=== PATIENT | female | born 1990 | race American Indian/Alaskan Native ===

== ENCOUNTER 2017-06-17 13:19 | Emergency (ER) | payer OTHER ==
--- NOTE | 2017-06-17 15:23 | Emergency Department Report ---
Blank Doc - Documentation Documentation: Patient is a 26-year-old Shaye female who is presenting with cough cold congestion body aches fever wheezing nausea vomiting and sore throat for the past 2 days. Patient denies any diarrhea or headache at this time. On brief physical exam patient is wheezing and has uncontrollable cough that sounds painful. Patient will be moved to a treatment room to get IV fluids and nausea medicine and a breathing treatment and Solu-Medrol chest x-ray be reassessed.
[2017-06-17] MEDS ORDERED: NORCO 7.5/325 PO ONE (15:24)
[2017-06-17] MEDS ORDERED: NACL 0.9% 1000 ML 1,000 ML IV ONE (15:24)
[2017-06-17] MEDS ORDERED: PROVENTIL IH ONE (15:24)
[2017-06-17] MEDS ORDERED: TORADOL IV ONE (15:24)
[2017-06-17] MEDS ORDERED: ATROVENT IH ONE (15:24)
[2017-06-17] MEDS ORDERED: ZOFRAN IV ONE (15:24)
--- NOTE | 2017-06-17 15:32 | Emergency Department Report ---
HPI - General Chief Complaint: Upper Respiratory Infection Time Seen by Provider: 06/17/17 15:07 - HPI HPI: Patient airport cough, body ache, chills. Says she's been ill since yesterday. Denies other medical problems. Denies taking any medication. Positive sore throat, nausea vomiting and productive cough. Denies any headache or diarrhea. Denies any abdominal pain. Denies any dizziness. Denies any drooling. Patient said she also had nasal congestion and drainage which started about a week and since yesterday she started coughing and body ache and chills. She says she took [id number] Tylenol Cold without any relief. Last menstrual period was 06/17/2017. Denies any chest pain or shortness of breath. Body aches and sore throat was 5 out of 10. Vomited times one today. ED Past Medical Hx - Past Medical History Previous Medical History?: Yes Hx Hypertension: No Hx Congestive Heart Failure: No Hx Diabetes: No Hx Deep Vein Thrombosis: No Hx Renal Disease: No Hx Sickle Cell Disease: No Hx Headaches / Migraines: Yes Hx Seizures: No Hx Asthma: No Hx COPD: No Hx HIV: No Additional medical history: denies - Surgical History Past Surgical History?: No Additional Surgical History: denies - Family History Family history: hypertension - Social History Smoking Status: Current Every Day Smoker Substance Use Type: None - Medications Home Medications: Home Medications Medication Instructions Recorded Confirmed Last Taken Type Butalb/Acetaminophen/Caffeine 1 cap PO Q6HR PRN #20 cap 11/08/15 Unknown Rx [Fioricet 50-300-40 mg CAP] ALBUTEROL Inhaler [ProAir HFA 2 puff IH QID PRN #1 inhalation 06/17/17 Unknown Rx Inhaler] Amoxicillin/K Clav Tab [Augmentin 1 tab PO Q12HR 10 Days #20 tab 06/17/17 Unknown Rx 875 mg] Cetirizine HCl [ZyrTEC] 10 mg PO QDAY 14 Days #14 capsule 06/17/17 Unknown Rx Fluticasone [Flonase] 1 spray NS QDAY 14 Days #1 bottle 06/17/17 Unknown Rx Ibuprofen [Motrin 600 MG tab] 600 mg PO Q8H PRN #15 tablet 06/17/17 Unknown Rx Prednisone [predniSONE 5 mg (6-Day 5 mg PO .TAPER #1 tab.ds.pk 06/17/17 Unknown Rx Pack, 21 Tabs)] Promethazine HCl/Codeine 5 ml PO Q6H PRN #118 syrup 06/17/17 Unknown Rx [Promethazine-Codeine Syrup] ED Review of Systems ROS: Stated complaint: CP/COLD/COUGHING Other details as noted in HPI Comment: All other systems reviewed and negative Constitutional: chills, malaise Eyes: denies: eye pain, eye discharge ENT: throat pain, congestion. denies: ear pain, dental pain Respiratory: cough. denies: orthopnea, shortness of breath, SOB with exertion, SOB at rest, stridor, wheezing Cardiovascular: denies: chest pain, palpitations, dyspnea on exertion, orthopnea , edema, syncope, paroxysmal nocturnal dyspnea Gastrointestinal: nausea, vomiting. denies: abdominal pain, diarrhea, constipation, hematemesis, melena, hematochezia Genitourinary: denies: urgency, dysuria, frequency, hematuria, abnormal menses Musculoskeletal: myalgia. denies: back pain, joint swelling, arthralgia Skin: denies: rash, pruritus Neurological: denies: headache, weakness, numbness, paresthesias, confusion, abnormal gait, vertigo Physical Exam - Physical Exam Vital Signs: Vital Signs 06/17/17 13:26 Temperature 98.6 F Pulse Rate 104 H Respiratory 20 Rate Blood Pressure 122/69 O2 Sat by Pulse 100 Oximetry General: This is a 26-year-old female well-nourished. Mild anxiety from illness. Nontoxic in appearance. Physical Exam: Head: Normocephalic, atraumatic, no abrasion, no bruising and no contusion. Eyes: Biateral pupils equal and reactive to light, bilateral EOM intact.. Bilateral conjunctival and sclera without injection, normal accommodation. Mouth: Mucosa dry, no pharyngeal exudate or erythema. No peritonsillar abscesses. Uvula is midline and oral airways patent. Ears: Bilateral TMs congested without erythema , Bilateral EAC without any redness swelling or drainage. No mastoid bone tenderness Nose: Bilateral nasal mucosa congested with clear drainage,Maxillary and frontal sinuses non-tender to palpate. Neck: Supple, No Cervical adenopathy, full range of motion and no C-spine tenderness. No swelling or tracheal deviation normal reflexes Cardiovascular: S1, S2. Mild tachycardia at 104 ,Regular rhythm. No murmur. Capillary refill is less then 3 seconds. Lungs: Patient presents alone feel and congested cough. No chest wall tenderness. No chest contusion. No bruising to chest. MSK: Strength 5/5 in all extremities. No joint deformity or crepitus. Normal inspection. Full range of motion to all extremities. No laceration, abrasion or ecchymotic area noted. Abdomen: Non-tender to palpate in all quadrants, no guarding or rebound tenderness, positive bowel sounds in all quadrants. No CVA tenderness. No hernia, bruit or mass. No rigidity or distention. Extremities: No clubbing, cyanosis or edema. +2 pulses. No neurovascular compromise Skin: Clean, dry and intact. No rash or lesions. Neurological: GCS at 15, Pt is alert and oriented 3 speech is clear . Psych: Normal mood and behavior ED Course Vital Signs 06/17/17 13:26 Temperature 98.6 F Pulse Rate 104 H Respiratory 20 Rate Blood Pressure 122/69 O2 Sat by Pulse 100 Oximetry Vital Signs 06/17/17 06/17/17 13:26 18:14 Temperature 98.6 F Pulse Rate 104 H 90 Respiratory 20 18 Rate Blood Pressure 122/69 Blood Pressure 122/70 [Left] O2 Sat by Pulse 100 98 Oximetry - Reevaluation(s) Reevaluation #1: 06/17/17 18:21 Patient received albuterol nebulizer 10 mg , Atrovent 1 mg, Solu-Medrol 125 mg IV. For cough and wheezing. She received Zofran 4 mg IV for nausea and Toradol 30 mg IV for pain. She also received hydrocodone 1 tablet by mouth also for pain. She received 1 L normal saline bolus. Upon her evaluation patient with very minimal wheezing to upper lung bynum, cough has subsided and pain and nausea has resolved. Patient says she is feeling a lot better. Her vital signs are stable and she is afebrile. Strep test is negative. ED Medical Decision Making - Lab Data Lab Results 06/17/17 Range/Units 17:30 Group A Strep Rapid Negative (Negative) Strep culture pending - Radiology Data Radiology results: report reviewed Chest x-ray revealed no acute cardiopulmonary findings - Medical Decision Making ED course: Patient presented to the emergency room complaining of worsening cold symptoms since yesterday. She prior to that she's been having nasal congestion and runny nose. Patient and will wheeze in and continuous cough and mild anxiety. Patient with onset of respiratory Infection cough congestion, nausea and vomiting, musculoskeletal pain, acute bronchitis. Strep test negative and culture pending. Chest x-ray shows no acute cardiopulmonary processes. Patient was given 10 mg albuterol and one Atrovent nebulizer, Solu- Medrol 125 mg IV which relieved her wheezing and upper coughing. She is having musculoskeletal pain and she received hydrocodone 1 tablet and Toradol 30 mg IV which pain has subsided. She received IV fluid 1 L IV bolus, Zofran 4 mg IV for nausea and patient's much better. Her vital signs remained stable throughout ED stay. I discussed strep and x-ray results patient, diagnosis and treatment plan and need to follow-up. She does not have a primary care physician so I'll go ahead and give her information for some outside Medical Center. I discussed with her that she needs to call tomorrow to schedule an appointment for follow-up visit. She voiced understanding and discharged home with prescription for albuterol, Zyrtec, Flonase, promethazine with codeine to help cough and nausea, Augmentin , Motrin and prednisone. Critical care attestation.: If time is entered above; I have spent that time in minutes in the direct care of this critically ill patient, excluding procedure time. ED Disposition Clinical Impression: Upper respiratory infection with cough and congestion, Musculoskeletal pain, Nausea and vomiting in adult Acute bronchitis Qualifiers: Bronchitis organism: unspecified organism Qualified Code(s): J20.9 - Acute bronchitis, unspecified Pharyngitis Qualifiers: Pharyngitis/tonsillitis etiology: unspecified etiology Qualified Code(s): J02.9 - Acute pharyngitis, unspecified Disposition: DC-01 TO HOME OR SELFCARE Is pt being admited?: No Does the pt Need Aspirin: No Condition: Stable Instructions: Acute Bronchitis (ED), Upper Respiratory Infection (ED), Acute Nausea and Vomiting (ED), Acute Cough (ED), Musculoskeletal Pain (ED) Additional Instructions: Please increase her fluid intake to 2-3 L of water a day. Takes Zyrtec and Flonase and this will help to relieve nasal congestion Take Augmentin, albuterol and prednisone for acute bronchitis Take Motrin for pain Take promethazine with codeine for cough and nausea. Please do not drive or operate heavy machinery while taking this medication as it causes drowsiness Follow up with [facility] in 2 days. Prescriptions: ALBUTEROL Inhaler [ProAir HFA Inhaler] 2 puff IH QID PRN #1 inhalation PRN Reason: wheezing and cough Amoxicillin/K Clav Tab [Augmentin 875 mg] 1 tab PO Q12HR 10 Days #20 tab Cetirizine HCl [ZyrTEC] 10 mg PO QDAY 14 Days #14 capsule Fluticasone [Flonase] 1 spray NS QDAY 14 Days #1 bottle Ibuprofen [Motrin 600 MG tab] 600 mg PO Q8H PRN #15 tablet PRN Reason: Pain Prednisone [predniSONE 5 mg (6-Day Pack, 21 Tabs)] 5 mg PO .TAPER #1 tab.ds.pk Promethazine HCl/Codeine [Promethazine-Codeine Syrup] 5 ml PO Q6H PRN #118 syrup PRN Reason: nausea and cough Referrals: [facility] [Outside] - 06/19/17 Forms: Accompanied Note, Work/School Release Form(ED)
--- NOTE | 2017-06-17 17:39 | XRay Report ---
FINAL REPORT EXAM: XR CHEST ROUTINE 2V HISTORY: cough TECHNIQUE: Two view chest PA and lateral PRIORS: None. FINDINGS: Cardiac and mediastinal contours are unremarkable. No focal pulmonary infiltrate is identified. No pleural fluid collection seen. Pulmonary vasculature is unremarkable. IMPRESSION: Negative two-view chest
[2017-06-17 18:15] VITALS: BP 122/70
== END 2017-06-17 18:44 | disposition home or self-care (01) ==
LOC: ED 13:19
DX: J06.9 Acute upper respiratory infection, unspecified (principal); J20.9 Acute bronchitis, unspecified; F17.200 Nicotine dependence, unspecified, uncomplicated
CPT/HCPCS: 71046; 87116; 87430; 94640; 96361; 96374; 96375; 99284; J1885; J2405; J2930; J7030

== ENCOUNTER 2017-09-27 20:00 | Emergency (ER) | payer SELFPAY ==
[2017-09-27] MEDS ORDERED: MOTRIN PO ONE (21:06)
[2017-09-27] MEDS ORDERED: AUGMENTIN 875 MG PO ONE (21:06)
[2017-09-27] MEDS ORDERED: DECADRON IM ONE (21:06)
--- NOTE | 2017-09-27 21:14 | Emergency Department Report ---
<DONAVAN KAPOOR - Last Filed: 09/27/17 21:10> ED ENT HPI - General Chief complaint: Sore Throat Stated complaint: SORE THROAT,BODY ACHE Time Seen by Provider: 09/27/17 21:06 Source: patient Mode of arrival: Ambulatory Limitations: No Limitations - History of Present Illness Initial comments: Patient is a 27-year-old female who presents for recurrent pharyngitis patient states pharyngitis resistive to penicillin usually treated with Augmentin 875 by mouth twice a day for 10 days this flare for the last 3 days patient has not seen in ENT as directed states nocturnal fever Tmax 101.5 F oral patient is currently tolerating by mouth intake is no ear pain shortness of breath no stridor complaint: sore throat, difficulty swallowing Onset/Timin -: days(s) Severity: moderate Severity scale (0 -10): 5 Quality: burning, sharp Consistency: intermittent Improves with: none Worsens with: swallowing Associated Symptoms: fever, pain with swallowing, sore throat - Related Data Previous Rx's Medication Instructions Recorded Last Taken Type Butalb/Acetaminophen/Caffeine 1 cap PO Q6HR PRN #20 cap 11/08/15 Unknown Rx [Fioricet 50-300-40 mg CAP] ALBUTEROL Inhaler [ProAir HFA 2 puff IH QID PRN #1 inhalation 06/17/17 Unknown Rx Inhaler] Amoxicillin/K Clav Tab [Augmentin 1 tab PO Q12HR 10 Days #20 tab 06/17/17 Unknown Rx 875 mg] Cetirizine HCl [ZyrTEC] 10 mg PO QDAY 14 Days #14 capsule 06/17/17 Unknown Rx Fluticasone [Flonase] 1 spray NS QDAY 14 Days #1 bottle 06/17/17 Unknown Rx Ibuprofen [Motrin 600 MG tab] 600 mg PO Q8H PRN #15 tablet 06/17/17 Unknown Rx Prednisone [predniSONE 5 mg (6-Day 5 mg PO .TAPER #1 tab.ds.pk 06/17/17 Unknown Rx Pack, 21 Tabs)] Promethazine HCl/Codeine 5 ml PO Q6H PRN #118 syrup 06/17/17 Unknown Rx [Promethazine-Codeine Syrup] Amoxicillin/Potassium Clav 1 each PO BID #20 tablet 09/27/17 Unknown Rx [Augmentin 875-125 Tablet] Benzocaine/Menth/Cetylpyrd 8 each MM Q2H #3 packet 09/27/17 Unknown Rx [Cepacol X Strength] Ibuprofen 800 mg PO TID PRN #30 tablet 09/27/17 Unknown Rx Allergies Allergy/AdvReac Type Severity Reaction Status Date / Time No Known Allergies Allergy Verified 03/29/14 18:03 ED Dental HPI - General Chief complaint: Sore Throat Stated complaint: SORE THROAT,BODY ACHE Time Seen by Provider: 09/27/17 21:06 Source: patient Mode of arrival: Ambulatory Limitations: No Limitations - Related Data Previous Rx's Medication Instructions Recorded Last Taken Type Butalb/Acetaminophen/Caffeine 1 cap PO Q6HR PRN #20 cap 11/08/15 Unknown Rx [Fioricet 50-300-40 mg CAP] ALBUTEROL Inhaler [ProAir HFA 2 puff IH QID PRN #1 inhalation 06/17/17 Unknown Rx Inhaler] Amoxicillin/K Clav Tab [Augmentin 1 tab PO Q12HR 10 Days #20 tab 06/17/17 Unknown Rx 875 mg] Cetirizine HCl [ZyrTEC] 10 mg PO QDAY 14 Days #14 capsule 06/17/17 Unknown Rx Fluticasone [Flonase] 1 spray NS QDAY 14 Days #1 bottle 06/17/17 Unknown Rx Ibuprofen [Motrin 600 MG tab] 600 mg PO Q8H PRN #15 tablet 06/17/17 Unknown Rx Prednisone [predniSONE 5 mg (6-Day 5 mg PO .TAPER #1 tab.ds.pk 06/17/17 Unknown Rx Pack, 21 Tabs)] Promethazine HCl/Codeine 5 ml PO Q6H PRN #118 syrup 06/17/17 Unknown Rx [Promethazine-Codeine Syrup] Amoxicillin/Potassium Clav 1 each PO BID #20 tablet 09/27/17 Unknown Rx [Augmentin 875-125 Tablet] Benzocaine/Menth/Cetylpyrd 8 each MM Q2H #3 packet 09/27/17 Unknown Rx [Cepacol X Strength] Ibuprofen 800 mg PO TID PRN #30 tablet 09/27/17 Unknown Rx Allergies Allergy/AdvReac Type Severity Reaction Status Date / Time No Known Allergies Allergy Verified 03/29/14 18:03 ED Review of Systems ROS: Stated complaint: SORE THROAT,BODY ACHE Other details as noted in HPI Constitutional: fever Eyes: denies: eye pain, eye discharge, vision change ENT: throat pain Respiratory: denies: cough, shortness of breath, wheezing Cardiovascular: denies: chest pain, palpitations Endocrine: no symptoms reported Gastrointestinal: denies: abdominal pain, nausea, diarrhea Genitourinary: denies: urgency, dysuria, discharge Musculoskeletal: denies: back pain, joint swelling, arthralgia Skin: as per HPI Neurological: denies: headache, weakness, paresthesias Psychiatric: denies: anxiety, depression Hematological/Lymphatic: denies: easy bleeding, easy bruising ED Past Medical Hx - Past Medical History Hx Hypertension: No Hx Congestive Heart Failure: No Hx Diabetes: No Hx Deep Vein Thrombosis: No Hx Renal Disease: No Hx Sickle Cell Disease: No Hx Headaches / Migraines: Yes Hx Seizures: No Hx Asthma: No Hx COPD: No Hx HIV: No Additional medical history: denies - Surgical History Past Surgical History?: No Additional Surgical History: denies - Social History Smoking Status: Former Smoker Substance Use Type: None - Medications Home Medications: Home Medications Medication Instructions Recorded Confirmed Last Taken Type Butalb/Acetaminophen/Caffeine 1 cap PO Q6HR PRN #20 cap 11/08/15 Unknown Rx [Fioricet 50-300-40 mg CAP] ALBUTEROL Inhaler [ProAir HFA 2 puff IH QID PRN #1 inhalation 06/17/17 Unknown Rx Inhaler] Amoxicillin/K Clav Tab [Augmentin 1 tab PO Q12HR 10 Days #20 tab 06/17/17 Unknown Rx 875 mg] Cetirizine HCl [ZyrTEC] 10 mg PO QDAY 14 Days #14 capsule 06/17/17 Unknown Rx Fluticasone [Flonase] 1 spray NS QDAY 14 Days #1 bottle 06/17/17 Unknown Rx Ibuprofen [Motrin 600 MG tab] 600 mg PO Q8H PRN #15 tablet 06/17/17 Unknown Rx Prednisone [predniSONE 5 mg (6-Day 5 mg PO .TAPER #1 tab.ds.pk 06/17/17 Unknown Rx Pack, 21 Tabs)] Promethazine HCl/Codeine 5 ml PO Q6H PRN #118 syrup 06/17/17 Unknown Rx [Promethazine-Codeine Syrup] Amoxicillin/Potassium Clav 1 each PO BID #20 tablet 09/27/17 Unknown Rx [Augmentin 875-125 Tablet] Benzocaine/Menth/Cetylpyrd 8 each MM Q2H #3 packet 09/27/17 Unknown Rx [Cepacol X Strength] Ibuprofen 800 mg PO TID PRN #30 tablet 09/27/17 Unknown Rx ED Physical Exam - General Limitations: No Limitations General appearance: alert, in no apparent distress - Head Head exam: Present: atraumatic, normocephalic - Eye Eye exam: Present: normal appearance - Expanded ENT Exam Expanded Throat exam: Positive: tonsillar erythema, tonsillomegaly, tonsillar exudate. Negative: R peritonsillar mass, L peritonsillar mass - Neck Neck exam: Present: normal inspection, full ROM, lymphadenopathy. Absent: tenderness, thyromegaly - Expanded Neck Exam Expanded Neck exam: Absent: tenderness, midline deformity, anterior neck swelling, thyroid mass - Respiratory Respiratory exam: Present: normal lung sounds bilaterally. Absent: respiratory distress, wheezes, stridor, chest wall tenderness, prolonged expiratory - Cardiovascular Cardiovascular Exam: Present: regular rate, normal rhythm, normal heart sounds. Absent: systolic murmur, diastolic murmur, rubs, gallop - GI/Abdominal GI/Abdominal exam: Present: soft, normal bowel sounds. Absent: distended, tenderness, guarding, rebound, rigid, hyperactive bowel sounds, organomegaly, mass, bruit, pulsatile mass, hernia - Rectal Rectal exam: Present: deferred - Extremities Exam Extremities exam: Present: normal inspection - Back Exam Back exam: Present: normal inspection - Neurological Exam Neurological exam: Present: alert, oriented X3, CN II-XII intact, normal gait, reflexes normal. Absent: motor sensory deficit - Psychiatric Psychiatric exam: Present: normal affect, normal mood - Skin Skin exam: Present: warm, dry, intact, normal color. Absent: rash ED Medical Decision Making - Medical Decision Making Rapid strep negative Midline noted tonsillomegaly bilaterally white exudate no stridor airway is patent plan . Pharyngitis Augmentin Decadron Cepacol throat lozenges ibuprofen when necessary pain fever follow up with ENT as directed patient verbalizes understanding and agreement with discharge plan we DC to home in stable condition at this time. Critical care attestation.: If time is entered above; I have spent that time in minutes in the direct care of this critically ill patient, excluding procedure time. ED Disposition Disposition: DC-01 TO HOME OR SELFCARE Is pt being admited?: No Does the pt Need Aspirin: No Condition: Good Instructions: Pharyngitis (ED) Prescriptions: Amoxicillin/Potassium Clav [Augmentin 875-125 Tablet] 1 each PO BID #20 tablet Benzocaine/Menth/Cetylpyrd [Cepacol X Strength] 8 each MM Q2H #3 packet Ibuprofen 800 mg PO TID PRN #30 tablet PRN Reason: pain/ fever Referrals: JASMINA FRY MD [Staff Physician] - 3-5 Days Forms: Work/School Release Form(ED) Time of Disposition: 21:21 <ROSALIE TEAGUE - Last Filed: 09/28/17 20:01> ED Medical Decision Making - Medical Decision Making I was available for consultations at all times during the patient stay. I did not personally see and was not involved in the care of the patient.
== END 2017-09-27 21:40 | disposition home or self-care (01) ==
LOC: ED 20:00
DX: R07.0 Pain in throat (principal); R13.10 Dysphagia, unspecified; G43.909 Migraine, unspecified, not intractable, without status migrainosus; Z87.891 Personal history of nicotine dependence
CPT/HCPCS: 87116; 87430; 96372; 99283; J1100

== ENCOUNTER 2017-11-18 22:47 | Emergency (ER) | payer SELFPAY ==
[2017-11-18 23:46] VITALS: BP 114/68
[2017-11-19] MEDS ORDERED: TYLENOL ONE
--- NOTE | 2017-11-19 01:54 | Emergency Department Report ---
ED ENT HPI - General Chief complaint: Sore Throat Stated complaint: THROAT AND BODY ACHES Time Seen by Provider: 11/19/17 01:50 Source: patient Mode of arrival: Ambulatory Limitations: No Limitations - History of Present Illness MD complaint: sore throat -: days(s) (1) - Related Data Previous Rx's Medication Instructions Recorded Last Taken Type Butalb/Acetaminophen/Caffeine 1 cap PO Q6HR PRN #20 cap 11/08/15 Unknown Rx [Fioricet 50-300-40 mg CAP] ALBUTEROL Inhaler [ProAir HFA 2 puff IH QID PRN #1 inhalation 06/17/17 Unknown Rx Inhaler] Amoxicillin/K Clav Tab [Augmentin 1 tab PO Q12HR 10 Days #20 tab 06/17/17 Unknown Rx 875 mg] Cetirizine HCl [ZyrTEC] 10 mg PO QDAY 14 Days #14 capsule 06/17/17 Unknown Rx Fluticasone [Flonase] 1 spray NS QDAY 14 Days #1 bottle 06/17/17 Unknown Rx Ibuprofen [Motrin 600 MG tab] 600 mg PO Q8H PRN #15 tablet 06/17/17 Unknown Rx Prednisone [predniSONE 5 mg (6-Day 5 mg PO .TAPER #1 tab.ds.pk 06/17/17 Unknown Rx Pack, 21 Tabs)] Promethazine HCl/Codeine 5 ml PO Q6H PRN #118 syrup 06/17/17 Unknown Rx [Promethazine-Codeine Syrup] Amoxicillin/Potassium Clav 1 each PO BID #20 tablet 09/27/17 Unknown Rx [Augmentin 875-125 Tablet] Benzocaine/Menth/Cetylpyrd 8 each MM Q2H #3 packet 09/27/17 Unknown Rx [Cepacol X Strength] Azithromycin [Zithromax Z-PRAVEEN] 250 mg PO QDAY #1 tablet 11/19/17 Unknown Rx Ibuprofen 800 mg PO TID PRN #30 tablet 11/19/17 Unknown Rx Allergies Allergy/AdvReac Type Severity Reaction Status Date / Time No Known Allergies Allergy Verified 03/29/14 18:03 ED Dental HPI - General Chief complaint: Sore Throat Stated complaint: THROAT AND BODY ACHES Time Seen by Provider: 11/19/17 01:50 Source: patient Mode of arrival: Ambulatory Limitations: No Limitations - Related Data Previous Rx's Medication Instructions Recorded Last Taken Type Butalb/Acetaminophen/Caffeine 1 cap PO Q6HR PRN #20 cap 11/08/15 Unknown Rx [Fioricet 50-300-40 mg CAP] ALBUTEROL Inhaler [ProAir HFA 2 puff IH QID PRN #1 inhalation 06/17/17 Unknown Rx Inhaler] Amoxicillin/K Clav Tab [Augmentin 1 tab PO Q12HR 10 Days #20 tab 06/17/17 Unknown Rx 875 mg] Cetirizine HCl [ZyrTEC] 10 mg PO QDAY 14 Days #14 capsule 06/17/17 Unknown Rx Fluticasone [Flonase] 1 spray NS QDAY 14 Days #1 bottle 06/17/17 Unknown Rx Ibuprofen [Motrin 600 MG tab] 600 mg PO Q8H PRN #15 tablet 06/17/17 Unknown Rx Prednisone [predniSONE 5 mg (6-Day 5 mg PO .TAPER #1 tab.ds.pk 06/17/17 Unknown Rx Pack, 21 Tabs)] Promethazine HCl/Codeine 5 ml PO Q6H PRN #118 syrup 06/17/17 Unknown Rx [Promethazine-Codeine Syrup] Amoxicillin/Potassium Clav 1 each PO BID #20 tablet 09/27/17 Unknown Rx [Augmentin 875-125 Tablet] Benzocaine/Menth/Cetylpyrd 8 each MM Q2H #3 packet 09/27/17 Unknown Rx [Cepacol X Strength] Azithromycin [Zithromax Z-PRAVEEN] 250 mg PO QDAY #1 tablet 11/19/17 Unknown Rx Ibuprofen 800 mg PO TID PRN #30 tablet 11/19/17 Unknown Rx Allergies Allergy/AdvReac Type Severity Reaction Status Date / Time No Known Allergies Allergy Verified 03/29/14 18:03 ED Review of Systems ROS: Stated complaint: THROAT AND BODY ACHES Other details as noted in HPI ED Past Medical Hx - Past Medical History Previous Medical History?: Yes Hx Hypertension: No Hx Congestive Heart Failure: No Hx Diabetes: No Hx Deep Vein Thrombosis: No Hx Renal Disease: No Hx Sickle Cell Disease: No Hx Headaches / Migraines: Yes Hx Seizures: No Hx Asthma: No Hx COPD: No Hx HIV: No Additional medical history: denies - Surgical History Past Surgical History?: No Additional Surgical History: denies - Social History Smoking Status: Never Smoker Substance Use Type: None - Medications Home Medications: Home Medications Medication Instructions Recorded Confirmed Last Taken Type Butalb/Acetaminophen/Caffeine 1 cap PO Q6HR PRN #20 cap 11/08/15 Unknown Rx [Fioricet 50-300-40 mg CAP] ALBUTEROL Inhaler [ProAir HFA 2 puff IH QID PRN #1 inhalation 06/17/17 Unknown Rx Inhaler] Amoxicillin/K Clav Tab [Augmentin 1 tab PO Q12HR 10 Days #20 tab 06/17/17 Unknown Rx 875 mg] Cetirizine HCl [ZyrTEC] 10 mg PO QDAY 14 Days #14 capsule 06/17/17 Unknown Rx Fluticasone [Flonase] 1 spray NS QDAY 14 Days #1 bottle 06/17/17 Unknown Rx Ibuprofen [Motrin 600 MG tab] 600 mg PO Q8H PRN #15 tablet 06/17/17 Unknown Rx Prednisone [predniSONE 5 mg (6-Day 5 mg PO .TAPER #1 tab.ds.pk 06/17/17 Unknown Rx Pack, 21 Tabs)] Promethazine HCl/Codeine 5 ml PO Q6H PRN #118 syrup 06/17/17 Unknown Rx [Promethazine-Codeine Syrup] Amoxicillin/Potassium Clav 1 each PO BID #20 tablet 09/27/17 Unknown Rx [Augmentin 875-125 Tablet] Benzocaine/Menth/Cetylpyrd 8 each MM Q2H #3 packet 09/27/17 Unknown Rx [Cepacol X Strength] Azithromycin [Zithromax Z-PRAVEEN] 250 mg PO QDAY #1 tablet 11/19/17 Unknown Rx Ibuprofen 800 mg PO TID PRN #30 tablet 11/19/17 Unknown Rx ED Physical Exam - General Limitations: No Limitations ED Course Vital Signs 11/18/17 23:43 Temperature 101.2 F H Pulse Rate 103 H Respiratory 14 Rate Blood Pressure 114/68 O2 Sat by Pulse 94 Oximetry ED Medical Decision Making - Medical Decision Making Patient has been evaluated by this provider in fast track. Patient was given Tylenol for pain management. Throat culture came back negative for strep. CBC CMP and chest x-ray order. Chest x-ray came back with middle lobe infiltrate. CBC, WBC is not elevated. Patient able to drink and eat. No difficulties breathing no shortness of breath. We'll discharge patient on azithromycin and Motrin for pain. Discussed patient if her symptoms persist or gets worse that she is to follow up with primary care provider. I have listed [facility] for her reference. Patient verbalized understanding Critical care attestation.: If time is entered above; I have spent that time in minutes in the direct care of this critically ill patient, excluding procedure time. ED Disposition Clinical Impression: Right middle lobe pneumonia Qualifiers: Pneumonia type: due to unspecified organism Qualified Code(s): J18.1 - Lobar pneumonia, unspecified organism Disposition: TO HOME OR SELFCARE Is pt being admited?: No Does the pt Need Aspirin: No Condition: Stable Instructions: Bacterial Pneumonia (ED) Additional Instructions: Complete antibiotics as prescribed. Pain medication as needed. Increase her water intake by 2 L. If your symptoms persist or gets worse please follow-up with your primary care provider. Prescriptions: Azithromycin [Zithromax Z-PRAVEEN] 250 mg PO QDAY #1 tablet Ibuprofen 800 mg PO TID PRN #30 tablet PRN Reason: pain/ fever Referrals: PRIMARY CARE, [Primary Care Provider] - 3-5 Days Forms: Work/School Release Form(ED), Accompanied Note
--- NOTE | 2017-11-19 02:21 | XRay Report ---
FINAL REPORT PROCEDURE: XR CHEST ROUTINE 2V TECHNIQUE: PA and lateral chest radiographs were obtained. CPT 40371 HISTORY: cough with fever COMPARISON: No prior studies are available for comparison. FINDINGS: Heart: Normal. Mediastinum/Vessels: Normal. Lungs/Pleural space: Lungs are expanded. There is a right middle lobe infiltrate. There are no effusions or pneumothoraces.. Bony thorax: No acute osseous abnormality. Other: IMPRESSION: Heart size is normal. There is a right middle lobe infiltrate..
[2017-11-19 02:29] LABS: Basophils % (Auto) 0.4 % (0.0-1.8); Eosinophils # (Auto) 0.5 K/mm3 (0.0-0.4); Eosinophils % (Auto) 6.1 % (0.0-4.3); Hematocrit 36.3 % (30.3-42.9); Hemoglobin 11.8 gm/dl (10.1-14.3); Lymphocytes % (Auto) 25.1 % (13.4-35.0); Mean Corpuscular HGB Conc 32 % (30-34); Mean Corpuscular Hemoglobin 27 pg (28-32); Mean Corpuscular Volume 83 fl (79-97); Monocytes # (Auto) 0.7 K/mm3 (0.0-0.8); Monocytes % (Auto) 8.7 % (0.0-7.3); Platelet Count 191 K/mm3 (140-440); Red Blood Count 4.38 M/mm3 (3.65-5.03); Red Cell Distribution Width 17.8 % (13.2-15.2)
[2017-11-19 02:44] LABS: Alanine Aminotransferase 9 units/L (7-56); Albumin 3.8 g/dL (3.9-5); BUN/Creatinine Ratio 10; Blood Urea Nitrogen 8 mg/dL (7-17); Calcium 9.2 mg/dL (8.4-10.2); Hemolysis Index 0
[2017-11-19] MEDS ORDERED: TYLENOL PO ONE (03:55)
== END 2017-11-19 03:00 | disposition home or self-care (01) ==
LOC: ED 22:47
DX: J18.1 Lobar pneumonia, unspecified organism (principal); G43.909 Migraine, unspecified, not intractable, without status migrainosus
CPT/HCPCS: 36415; 71046; 80053; 85025; 87116; 87430